=== PATIENT | male | born 1960 ===

== ENCOUNTER 2017-02-13 20:13 | Emergency (ER) | payer SELFPAY ==
[2017-02-13] MEDS ORDERED: Aspirin Low Dose CHEW TAB* 81 MG PO ONE (20:40)
[2017-02-13 20:51] VITALS: BP 190/112
--- NOTE | 2017-02-13 21:25 | UC ---
Meghan Isaacs Thomas, scribed for Neftali Meyer MD on 02/13/17 at 2037 . Headache HPI - HPI Summary HPI Summary: The pt is a 56 y/o M accompanied by friend and presenting to [facility] c/o intermittent head and neck pain that began today at 17:00 but has since mostly resolved. The pain is localized to his jaw. Pt additionally c/o L-sided facial droop (resolved by examination), confusion (when the pain is bad), and shakes ( resolved by examination). Pt denies changes to his gait. All of his symptoms have been intermittent. While he was driving to [facility], the symptoms resolved. A similar episode occurred three days ago. PMHx: previously healthy. PSHx: none. SHx: no smoking, no alcohol use. FHx: negative for hypertension. His friend acts as a aircraft designer for this interaction. - History Of Current Complaint Chief Complaint: UCGeneralIllness Stated Complaint: HEAD AND JAW PAIN Time Seen by Provider: 02/13/17 20:25 Hx Obtained From: Patient, Family/Field Services Director - friend present, who acts as restaurant maintenance technician Onset/Duration: Lasting Hours - symptoms began at 17:00, Still Present Pain Intensity: 8 Pain Scale Used: 0-10 Numeric Timing: Intermittent, Lasting: Location of Headache: Other: - entire head, jaw, and neck Aggravating Factor: Nothing Allevating Factors: Nothing Associated Signs And Symptoms: Positive: Neck Pain, Other (Noted In Comments) - POS: L-sided facial droop, shakes, confusion (when pain is bad). Negative: Fever - Allergies/Home Medications Allergies/Adverse Reactions: Allergies Allergy/AdvReac Type Severity Reaction Status Date / Time No Known Allergies Allergy Verified 02/13/17 20:24 Home Medications: Home Medications NK [No Home Medications Reported] 02/13/17 [History Confirmed 02/13/17] PMH/Surg Hx/FS Hx/Imm Hx Previously Healthy: Yes - Surgical History Surgical History: None - Family History Known Family History: Negative: Hypertension - Social History Alcohol Use: None Substance Use Type: None Smoking Status (MU): Never Smoked Tobacco Review of Systems Constitutional: Negative Skin: Negative Eyes: Negative ENT: Negative Respiratory: Negative Cardiovascular: Negative Gastrointestinal: Negative Genitourinary: Negative Motor: Negative Neurovascular: Negative Musculoskeletal: Other: - POS: neck pain, jaw pain Neurological: Headache, Other - POS: confusion (when pain is bad), L-sided facial droop (resolved by examination); NEG: changes to gait Psychological: Negative All Other Systems Reviewed And Are Negative: Yes Physical Exam Triage Information Reviewed: Yes Vital Signs: Initial Vital Signs Temp 97.5 F 02/13/17 20:19 Pulse 90 02/13/17 20:19 Resp 18 02/13/17 20:19 BP 200/111 02/13/17 20:19 Pulse Ox 99 02/13/17 20:19 Vital Signs Reviewed: Yes Neck: Positive: 1 - Additional Comments General: well-appearing, no pain distress Skin: warm, color reflects adequate perfusion, dry Head: normal Eyes: EOMI, DEMETRIUS ENT: normal Neck: supple, nontender Respiratory: CTA, breath sounds present Cardiovascular: RRR Abdomen: soft, nontender Bowel: present Musculoskeletal: normal, strength/ROM intact Neurological: normal, sensory/motor intact, A&O x3 Psychological: affect/mood appropriate Diagnostics - Laboratory Diagnostic Studies Completed/Ordered: EKG at 20:30 reveals normal sinus at 75 BPM, LVH, no ectopy Headache Course/Dx - Course Course Of Treatment: The pt is a 56 y/o M accompanied by friend and presenting to [facility] c/o intermittent head and neck pain that began today at 17:00 but has since mostly resolved. The pain is localized to his jaw. Pt additionally c/o L- sided facial droop (resolved by examination), confusion (when the pain is bad), and shakes (resolved by examination). Pt denies changes to his gait. All of his symptoms have been intermittent. While he was driving to [facility], the symptoms resolved. A similar episode occurred three days ago. PMHx: previously healthy. PSHx: none. SHx: no smoking, no alcohol use. FHx: negative for hypertension. His friend acts as a aircraft designer for this interaction. EKG at 20:30 reveals normal sinus at 75 BPM, LVH, no ectopy. In the course at [facility] the patient was given ASA. The patient will be transferred to higher level of care at [facility] ED by ambulance. Patient is agreeable with this plan. TRANSFER TO ED STABLE. - Differential Dx/Diagnosis Provider Diagnoses: HEADACHE, FACIAL WEAKNESS, CONFUSION, HYPERTENSION Discharge - Discharge Plan Condition: Fair Disposition: TRANS HIGHER L OF CARE FAC Discharge Disposition Comment: Transfer to higher level of care at [facility] ED by ambulance Referrals: No Primary Care Phys,NOPCP [Primary Care Provider] - The documentation as recorded by the Meghan sanchez Thomas accurately reflects the service I personally performed and the decisions made by me, Neftali Meyer MD.
== END 2017-02-13 20:58 | disposition short-term general hospital (02) ==
LOC: UCEAST 20:13
DX: R51 Headache (principal); R29.810 Facial weakness; R41.0 Disorientation, unspecified; I10 Essential (primary) hypertension
CPT/HCPCS: 93005; 99203; A9270-GY; G0463

== ENCOUNTER 2017-02-13 21:12 | Emergency (ER) | payer SELFPAY ==
[2017-02-13] MEDS ORDERED: cloNIDine TAB* 0.1 MG PO ONE (21:56)
[2017-02-13 21:59] LABS: Hematocrit 42 % (42-52); Hemoglobin 14.5 g/dl (14.0-18.0); Mean Corpuscular HGB Conc 34 g/dl (31-36); Mean Corpuscular Hemoglobin 31 pg (27-31); Mean Corpuscular Volume 91 fL (80-94); Mean Platelet Volume 7 um3 (7.4-10.4); Red Blood Count 4.62 10^6/ul (4.0-5.4); Red Cell Distribution Width 14 % (10.5-15); White Blood Count 7.1 10^3/ul (3.5-10.8)
[2017-02-13 22:10] LABS: Albumin 4.3 g/dL (3.2-5.2); BUN/Creatinine Ratio 18.7 (8-20); Calcium 8.9 mg/dL (8.6-10.3); EGFR African American 110.4 (>60); EGFR Non-African American 85.9 (>60); Globulin 3.2 g/dL (2-4); Magnesium 2.2 mg/dL (1.9-2.7); Potassium 3.7 mmol/L (3.5-5.0); Total Bilirubin 1.6 mg/dL (0.2-1.0); Total Protein 7.5 g/dL (6.4-8.9)
--- NOTE | 2017-02-13 22:23 | RAD ---
INDICATION: Hypertension. COMPARISON: There are no prior studies available for comparison. TECHNIQUE: A portable view of the chest was obtained. FINDINGS: Cardiac and mediastinal contours appear to be within normal limits. The lungs are clear. No pleural effusion is seen. IMPRESSION: NO EVIDENCE FOR ACUTE DISEASE.
[2017-02-14 00:29] VITALS: BP 140/88
--- NOTE | 2017-02-14 06:02 | ED ---
Rolanda Isaacs SooYoung, scribed for Asher Catherine on 02/13/17 at 2146 . Hypertension - HPI Summary HPI Summary: A 56 y/o M referred from [facility] presents to ED with high blood pressure onset BEAN WEIGHER. Pt's family is with him and assisting in translating. Associated sx: diffuse headache with pain radiating along his jaw. Denies prev [place]. Is not on HTN medication. Denoes ETOH, smoking, drugs. - History of Current Complaint Chief Complaint: EDHypertension Stated Complaint: HIGH BLOOD PRESSURE Time Seen by Provider: 02/13/17 21:39 Hx Obtained From: Patient, Family/Echocardiography Radiology Technologist, Medical Records Onset/Duration: Still Present Timing: Constant Associated Signs & Symptoms: Headaches - Allergies/Home Medications Allergies/Adverse Reactions: Allergies Allergy/AdvReac Type Severity Reaction Status Date / Time No Known Allergies Allergy Verified 02/13/17 21:26 PMH/Surg Hx/FS Hx/Imm Hx Previously Healthy: No Cardiovascular History: Reports: Hx Hypertension Denies: Hx Myocardial Infarction Sensory History: Denies: Hx Eye Prosthesis, Hx Legally Blind Opthamlomology History: Denies: Hx Eye Prosthesis, Hx Legally Blind - Immunization History Date of Tetanus Vaccine: unk Date of Influenza Vaccine: unk Infectious Disease History: No Infectious Disease History: Denies: Traveled Outside the [place] in Last 30 Days - Family History Known Family History: Negative: Hypertension - Social History Occupation: Employed Full-time Lives: With Family Alcohol Use: None Hx Substance Use: No Substance Use Type: Reports: None Hx Tobacco Use: No Smoking Status (MU): Never Smoked Tobacco Review of Systems Negative: Fever Positive: Other - pos: high BP Positive: Headache - diffuse radiating to jaw All Other Systems Reviewed And Are Negative: Yes Physical Exam Triage Information Reviewed: Yes Vital Signs On Initial Exam: Initial Vitals Temp Pulse Resp BP Pulse Ox 98.5 F 84 16 196/110 97 02/13/17 21:19 02/13/17 21:19 02/13/17 21:19 02/13/17 21:19 02/13/17 21:19 Vital Signs Reviewed: Yes Appearance: Positive: Well-Appearing, No Pain Distress Skin: Positive: Warm, Skin Color Reflects Adequate Perfusion, Dry Head/Face: Positive: Normal Head/Face Inspection Eyes: Positive: EOMI, DEMETRIUS ENT: Positive: Normal ENT inspection Neck: Positive: Supple, Nontender Respiratory/Lung Sounds: Positive: Clear to Auscultation, Breath Sounds Present Cardiovascular: Positive: RRR, Pulses are Symmetrical in both Upper and Lower Extremities Abdomen Description: Positive: Nontender, Soft Bowel Sounds: Positive: Present Musculoskeletal: Positive: Normal, Strength/ROM Intact Neurological: Positive: Normal, Sensory/Motor Intact, Alert, Oriented to Person Place, Time - Swapna Coma Scale Coma Scale Total: 15 Diagnostics - Vital Signs Vital Signs Temp Pulse Resp BP Pulse Ox 02/13/17 21:23 98.5 F 78 20 189/106 97 02/13/17 21:19 98.5 F 84 16 196/110 97 - Laboratory Lab Results: Lab Results 02/13/17 02/13/17 02/13/17 Range/Units 20:44 20:44 20:44 WBC 7.1 (3.5-10.8) 10^3/ul RBC 4.62 (4.0-5.4) 10^6/ul Hgb 14.5 (14.0-18.0) g/dl Hct 42 (42-52) % MCV 91 (80-94) fL MCH 31 (27-31) pg MCHC 34 (31-36) g/dl RDW 14 (10.5-15) % Plt Count 252 (150-450) 10^3/ul MPV 7 L (7.4-10.4) um3 Neut % (Auto) 75.0 (38-83) % Lymph % (Auto) 16.5 L (25-47) % Dickey % (Auto) 6.5 (1-9) % Eos % (Auto) 1.1 (0-6) % Baso % (Auto) 0.9 (0-2) % Absolute Neuts (auto) 5.4 (1.5-7.7) 10^3/ul Absolute Lymphs (auto) 1.2 (1.0-4.8) 10^3/ul Absolute Monos (auto) 0.5 (0-0.8) 10^3/ul Absolute Eos (auto) 0.1 (0-0.6) 10^3/ul Absolute Basos (auto) 0.1 (0-0.2) 10^3/ul Absolute Nucleated RBC 0 10^3/ul Nucleated RBC % 0 INR (Anticoag Therapy) 0.86 L (0.89-1.11) APTT 29.6 (26.0-36.3) seconds Sodium 137 (133-145) mmol/L Potassium 3.7 (3.5-5.0) mmol/L Chloride 104 (101-111) mmol/L Carbon Dioxide 26 (22-32) mmol/L Anion Gap 7 (2-11) mmol/L BUN 17 (6-24) mg/dL Creatinine 0.91 (0.67-1.17) mg/dL Est GFR ( Amer) 110.4 (>60) Est GFR (Non-Af Amer) 85.9 (>60) BUN/Creatinine Ratio 18.7 (8-20) Glucose 168 H (70-100) mg/dL Lactic Acid (0.5-2.0) mmol/L Calcium 8.9 (8.6-10.3) mg/dL Magnesium 2.2 (1.9-2.7) mg/dL Total Bilirubin 1.60 H (0.2-1.0) mg/dL AST 26 (13-39) U/L ALT 22 (7-52) U/L Alkaline Phosphatase 69 (34-104) U/L Troponin I 0.00 (<0.04) ng/mL B-Natriuretic Peptide ( - 100) pg/mL Total Protein 7.5 (6.4-8.9) g/dL Albumin 4.3 (3.2-5.2) g/dL Globulin 3.2 (2-4) g/dL Albumin/Globulin Ratio 1.3 (1-3) 02/13/17 02/13/17 Range/Units 20:44 22:38 WBC (3.5-10.8) 10^3/ul RBC (4.0-5.4) 10^6/ul Hgb (14.0-18.0) g/dl Hct (42-52) % MCV (80-94) fL MCH (27-31) pg MCHC (31-36) g/dl RDW (10.5-15) % Plt Count (150-450) 10^3/ul MPV (7.4-10.4) um3 Neut % (Auto) (38-83) % Lymph % (Auto) (25-47) % Dickey % (Auto) (1-9) % Eos % (Auto) (0-6) % Baso % (Auto) (0-2) % Absolute Neuts (auto) (1.5-7.7) 10^3/ul Absolute Lymphs (auto) (1.0-4.8) 10^3/ul Absolute Monos (auto) (0-0.8) 10^3/ul Absolute Eos (auto) (0-0.6) 10^3/ul Absolute Basos (auto) (0-0.2) 10^3/ul Absolute Nucleated RBC 10^3/ul Nucleated RBC % INR (Anticoag Therapy) (0.89-1.11) APTT (26.0-36.3) seconds Sodium (133-145) mmol/L Potassium (3.5-5.0) mmol/L Chloride (101-111) mmol/L Carbon Dioxide (22-32) mmol/L Anion Gap (2-11) mmol/L BUN (6-24) mg/dL Creatinine (0.67-1.17) mg/dL Est GFR ( Amer) (>60) Est GFR (Non-Af Amer) (>60) BUN/Creatinine Ratio (8-20) Glucose (70-100) mg/dL Lactic Acid 1.1 (0.5-2.0) mmol/L Calcium (8.6-10.3) mg/dL Magnesium (1.9-2.7) mg/dL Total Bilirubin (0.2-1.0) mg/dL AST (13-39) U/L ALT (7-52) U/L Alkaline Phosphatase (34-104) U/L Troponin I (<0.04) ng/mL B-Natriuretic Peptide 33 ( - 100) pg/mL Total Protein (6.4-8.9) g/dL Albumin (3.2-5.2) g/dL Globulin (2-4) g/dL Albumin/Globulin Ratio (1-3) Result Diagrams: 02/13/17 20:44 02/13/17 20:44 Lab Statement: Any lab studies that have been ordered have been reviewed, and results considered in the medical decision making process. - Radiology CXR Xray Interpretation: No Acute Changes - IMPRESSION: No evidence for acute dz. Radiology Interpretation Completed By: Radiologist - CT HEAD CT CT Interpretation: Positive (See Comments) - IMPERSSION: No acute intracranial hemorrhage mass effect or midline shift. 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 CT Interpretation Completed By: Radiologist - EKG 2121 Cardiac Rate: NL EKG Rhythm: Sinus Rhythm EKG Interpretation: no acute changes Hypertension Course/Dx - Course Course Of Treatment: A 56 y/o M referred from [facility] presents to ED with high blood pressure onset BEAN WEIGHER. Pt's family is with him and assisting in translating. Associated sx: diffuse headache with pain radiating along his jaw. Denies prev [place]. Is not on HTN medication. Denoes ETOH, smoking, drugs. CXR shows no acute findings. EKG has NSR with no acute changes. Head CT shows "No acute intracranial hemorrhage mass effect or midline shift. Nonspecific circumscribed 1.4cm intramedullary bone lesion in the L parietal skull innter table most likely due to a prominent arachnoid granulation or other benign bone lesion." Report recommends f/u MRI with contrast may be needed. Will D/C home with Lisinopril and to f/u with PCP. - Diagnoses Provider Diagnoses: Hypertension Discharge - Discharge Plan Condition: Stable Disposition: HOME Prescriptions: Lisinopril/HCTZ 10/12.5(NF) [Zestoretic 10/12.5(NF)] 1 tab PO DAILY 30 Days Lisinopril/HCTZ 10/12.5(NF) [Zestoretic 10/12.5(NF)] 1 tab PO DAILY 30 Days MDD 1 Lisinopril/HCTZ 10/12.5(NF) [Zestoretic 10/12.5(NF)] 1 tab PO DAILY #30 tab MDD 1 Patient Education Materials: Lisinopril/Hydrochlorothiazide (By mouth), Hypertension (ED) Referrals: No Primary Care Phys,NOPCP [Primary Care Provider] - [facility] PHYSICIAN REFERRAL [Outside] Additional Instructions: Establish and follow up with a primary care doctor in 3 days. Please return to the ED if you experience new or worsening symptoms. The documentation as recorded by the Rolanda sanhcez SooYoung accurately reflects the service I personally performed and the decisions made by me, Asher Catherine.
--- NOTE | 2017-02-14 07:34 | RAD ---
HISTORY: Headache COMPARISONS: None TECHNIQUE: Multiple contiguous axial CT scans were obtained of the head without intravenous contrast. FINDINGS: HEMORRHAGE/INFARCT: There is no hemorrhage or acute infarct. MASSES/SHIFT: There is no mass or shift. EXTRA-AXIAL SPACES: There are no extra-axial fluid collections. SULCI AND VENTRICLES: The sulci and ventricles are normal in size and position for the patient's stated age. CEREBRUM: There are no focal parenchymal abnormalities. BRAINSTEM: There are no focal parenchymal abnormalities. CEREBELLUM: There are no focal parenchymal abnormalities. VESSELS: The vessels are grossly normal. PARANASAL SINUSES: The paranasal sinuses are clear. ORBITS: The orbits are unremarkable. BONES AND SOFT TISSUE: There is a nonaggressive lesion of the left parietal skull most consistent with an arachnoid granulation or venous lacunae OTHER: None IMPRESSION: NO ACUTE INTRACRANIAL PATHOLOGY.
== END 2017-02-14 00:31 | disposition home or self-care (01) ==
LOC: ED 21:12
DX: I10 Essential (primary) hypertension (principal); R51 Headache; Z86.79 Personal history of other diseases of the circulatory system
CPT/HCPCS: 36415; 70450; 71010; 80053; 83605; 83735; 83880; 84484; 85025; 85610; 85730; 93005; 99283; A9270-GY